=== PATIENT | female | born 1945 | race Caucasian/White ===

== ENCOUNTER 2019-03-02 11:04 | Emergency (ER) | payer MEDICARE, MEDICAID ==
[~2019-03-02] VITALS: Ht 167.6 cm; Wt 79.0 kg
[2019-03-02 11:37] VITALS: BP 114/91
[2019-03-02 12:32] LABS: BASOPHILS # (AUTO) 0.02 x10^3/uL (0-0.1); BASOPHILS % (AUTO) 1 % (0-1); EOSINOPHILS # (AUTO) 0.09 x10^3/uL (0-0.4); EOSINOPHILS % (AUTO) 2 % (1-7); LYMPHOCYTES # (AUTO) 1.32 x10^3/uL (1-3.4); LYMPHOCYTES % (AUTO) 34 % (22-44); MD NO; MEAN CORPUSCULAR HGB CONC 33.7 g/dL (32.4-35.8); MEAN PLATELET VOLUME 7.6 fL (7.4-10.4); MONOCYTES # (AUTO) 0.33 x10^3/uL (0.2-0.8); MONOCYTES % (AUTO) 8 % (2-9); NEUTROPHILS # (AUTO) 2.11 x10^3/uL (1.8-6.8); NEUTROPHILS % (AUTO) 55 % (42-75); PLATELET COUNT 173 x10^3/uL (130-400); RED BLOOD COUNT 4.19 x10^6/uL (3.82-5.3); RED CELL DISTRIBUTION WIDTH 12.7 % (9.6-15.2)
[2019-03-02 12:50] LABS: ALBUMIN 3.6 g/dL (3.4-5.0); ANION GAP 5 mmol/L (5-15); CALCIUM 8.9 mg/dL (8.5-10.1); CHLORIDE 108 mmol/L (98-107); CREATININE 1.08 mg/dL (0.55-1.02)
--- NOTE | 2019-03-02 13:05 | NUR ---
PT TO ROOM AT THIS TIME.
--- NOTE | 2019-03-02 13:25 | NUR ---
73 Y/O FEMALE PRESENTS TO ED WITH C/O LEFT TOE/FOOT PAIN FOR 2.5 MONTHS. NO ACUTE DISTRESS NOTED.
--- NOTE | 2019-03-02 13:31 | NUR ---
BEDSIDE REPORT TO NATALYA SAWYER
--- NOTE | 2019-03-02 13:40 | NUR ---
Patient given discharge instructions and they have confirmed that they understand the instructions. Patient ambulatory with steady gait.
== END 2019-03-02 13:42 | disposition home or self-care (01) ==
LOC: ED 13:36
DX: L03.032 Cellulitis of left toe (principal)
CPT/HCPCS: 36415; 80048; 82040; 84550; 85025; 99284